=== PATIENT | male | born 1955 | race Caucasian/White ===

== ENCOUNTER → 2018-03-18 | Outpatient (CLI) | payer MEDICARE, OTHER ==
[~2018-03-18] MED LIST: ACE325 PO; ALE70 PO; ASPI-715 PO; ATR80PT PO; BAC10 PO; BACL-51 PO; CALC-547 PO; CALC-896 PO; CIP500 PO; CLO1 PO; CLO75 PO; DOC100 PO; FAMO20TA9 PO; LEVO250T37 PO; LOR5/325 PO; MAGN30TA5 PO; MELA5TAB PO; METO25TA93 PO; MULT1CAP41 PO; NEOPT TOP; PHENA200 PO; ROP1 PO; SAW450CA5 PO; TAM4 PO; [UNRECOGNIZED DRUG - CODE] TOP; [UNRECOGNIZED DRUG - OTHER]
--- NOTE | 2018-03-18 11:09 | RADIOLOGY IMAGING REPORT ---
FACILITY: [facility] PATIENT NAME: Eligio Menard : 1955 MR: [id number] V: [id number] EXAM DATE: ORDERING PHYSICIAN: PAOLA MORTON TECHNOLOGIST: Location: [facility] - [place], [place] Patient: Eligio Menard : 1955 Visit/Account:[id number] Date of Sevice: 03/18/2018 DEXA Scan CLINICAL INFORMATION: Osteoporosis. COMPARISON: March 15, 2016 LUMBAR SPINE: The bone mineral density (BMD) measured from L1-L4 correlates with a Z-score 0.2 and a T-score of -0 .6 which is normal as defined by the World Health Organization. Bone mineral density has decreased b y 1.5% compared to prior (change of 5% is considered significant). HIP: Bone mineral density (BMD) measured in the left total hip region correlates with a Z-score -0.1 and a T-score of -0.8 which is normal as defined by the World Health Organization. Hip bone mineral densi ty has decreased by 1.4% compared to prior (change of 5% is considered significant). Bone mineral density (BMD) measured in the left femoral Neck region measures 0.979 g/cm2. IMPRESSION: 1. Lumbar spine: Normal bone mineral density.. No significant change. 2. Left Total Hip: Normal bone mineral density. No significant change. 3. Left femoral Neck: Bone Mineral Density is 0.979 g/cm2 The next DEXA scan of this patient should include the following sites: L1-L4 and the left hip. FRAX? WHO Fracture Risk Assessment Tool link: <http://www.shef.ac.uk/FRAX/tool.jsp?locationValue=9> PLEASE NOTE: 1) The World Health Organization defines low BMD as follows: T-score Normal > -1 Osteopenia < -1 and > -2.5 Osteoporosis < -2.5 without fractures Established osteoporosis < -2.5 with fractures 2) In general, you may wish to consider: Diagnosis Treatment Follow-up DEXA Normal BMD Prevention 2-3 years Osteopenia Prevention/therapy 1-2 years Osteoporosis Therapy Yearly 3) Fracture risk estimated from the T-score is more accurate for vertebral fractures (often spontane ous) than for hip fractures. Report Dictated By: Jese Trejo MD at 03/18/2018 11:00 AM Report E-Signed By: Jese Trejo MD at 03/18/2018 11:03 AM WSN:[id number]
== END ==
LOC: RAD 00:43
PROVIDERS: ATTEND Nurse Practitioner Family
DX: M81.0 Age-related osteoporosis without current pathological fracture (principal); M81.8 Other osteoporosis without current pathological fracture
CPT/HCPCS: 77080

== ENCOUNTER → 2018-06-04 | Outpatient (CLI) | payer MEDICARE, OTHER ==
[~2018-06-04] MED LIST changes: +BUPR-124 PO; +METO50TA19 PO; +ROPI4TAB2 PO; +ROPI4TAB21 PO
--- NOTE | 2018-06-04 16:34 | RADIOLOGY IMAGING REPORT ---
FACILITY: [facility] [place] PATIENT NAME: Eligio Menard : 1955 MR: [id number] V: [id number] EXAM DATE: ORDERING PHYSICIAN: PAOLA MORTON TECHNOLOGIST: Location: [facility] [place] Patient: Eligio Menard : 1955 Visit/Account:[id number] Date of Sevice: 06/04/2018 CHEST PA AND LAT INDICATION: Cough x2 weeks COMPARISON: 03/04/2013 FINDINGS: Heart size within normal limits. There is no focal infiltrate or lobar consolidation. There is no pneumothorax or pleural effusion. The lungs are hyperexpanded and system with COPD IMPRESSION: 1. No acute cardiopulmonary process. Stable COPD Report Dictated By: Clarence Chatterjee at 06/04/2018 4:29 PM Report E-Signed By: Clarence Chatterjee at 06/04/2018 4:30 PM WSN:[id number]
== END ==
LOC: RAD 15:01
PROVIDERS: ATTEND Nurse Practitioner Family
DX: J20.9 Acute bronchitis, unspecified (principal)
CPT/HCPCS: 71046

== ENCOUNTER 2018-10-13 12:36 | Emergency (ER) | payer MEDICARE, OTHER ==
--- NOTE | 2018-10-13 12:58 | ER Report ---
History and Physical Time Seen By MD: 12:45 HPI/ROS CHIEF COMPLAINT: slurred speech, facial weakness HISTORY OF PRESENT ILLNESS: Pt has hx spinal cerebellar atrophy and blindness; per pt he has felt fatigued over past 2 d with increased activity; per he left for [place] on friday for appointment; when he returned home friday at 5pm, she noticed slurred speech. This am, she left the home at 1030; when she returned at 1215 she noticed facial droop on the left. She also states pt has had increase in his resting tremors over past 2 weeks. He has never had cva, is on asa 325 mg REVIEW OF SYSTEMS: Constitutional: No fever, no chills. Eyes: No discharge. ENT: No sore throat. Cardiovascular: No chest pain, no palpitations. Respiratory: No cough, no shortness of breath. Gastrointestinal: No abdominal pain, no vomiting. Genitourinary: no urinary symptoms Musculoskeletal: No back pain. Skin: No rashes. Neurological: No headache. Remainder of the 14 system rev: Yes Allergies: Coded Allergies: No Known Drug Allergies (Verified , 02/26/13) Home Meds Reported Medications Ropinirole Hcl (ROPINIROLE HCL) 4 Mg Tab.er.24h, 4 MG PO QDAY 06/03/18 Bupropion Hcl (BUPROPION XL) 150 Mg Tab.er.24h, 150 MG PO QDAY, #10 TAB 06/03/18 Metoprolol Succinate (METOPROLOL SUCCINATE) 50 Mg Tab.er.24h, 1 TAB PO QDAY, TAB 06/03/18 Baclofen (Lioresal) 20 Mg Tablet, 20 MG PO HS 03/04/13 Magnesium (Magnesium) 30 Mg Tablet, 30 MG PO DAILY, 0 Refills 07/17/10 Saw Forreston Fruit (Saw Forreston) 450 Mg Capsule, 450 MG PO DAILY, 0 Refills 07/17/10 Aspirin (Aspirin) 81 Mg Tablet.dr, 325 MG PO DAILY, 0 Refills 07/17/10 [Eye Support Suppl] No Conflict Check, 0 Refills 07/17/10 Multivitamins W-Minerals (Multivitamin) 1 Cap Capsule, 1 CAP PO DAILY, 0 Refills 07/17/10 Clonazepam (Klonopin) 1 Mg Tab, 1 MG PO QHS, 0 Refills 07/17/10 Reviewed Nurses Notes: Yes Old Medical Records Reviewed: Yes Hx Smoking: No Smoking Status: Never Smoker, Unknown if Ever Smoked Hx Substance Use Disorder: No Hx Alcohol Use: Yes (1 wine daily) Constitutional Vital Sign - Last 24 Hours 10/13/18 10/13/18 10/13/18 10/13/18 12:42 12:54 13:00 13:15 Temp 98.2 Pulse 74 80 79 Resp 16 18 9 B/P (MAP) 132/77 132/77 (95) 115/79 (91) 135/79 (97) Pulse Ox 96 96 96 O2 Delivery Room Air 10/13/18 10/13/18 10/13/18 10/13/18 13:30 13:45 14:00 14:15 Pulse 82 71 69 67 Resp 16 17 19 16 B/P (MAP) 130/89 (103) 121/77 (92) 117/72 (87) 116/74 (88) Pulse Ox 97 95 94 94 10/13/18 10/13/18 10/13/18 10/13/18 14:30 15:35 15:45 16:00 Pulse 70 66 77 Resp 14 9 18 B/P (MAP) 111/87 (95) 131/82 (98) 134/80 (98) 101/89 (93) Pulse Ox 95 96 93 Physical Exam General Appearance: The patient is alert, has no immediate need for airway protection and no signs of toxicity. Eyes: Pupils equal and round no pallor or injection. Pt does not have any sight at baseline ENT, Mouth: Mucous membranes are moist. Slurred, slowed speech Respiratory: There are no retractions, lungs are clear to auscultation. Cardiovascular: Regular rate and rhythm. Gastrointestinal: Abdomen is soft and non tender, no masses, bowel sounds normal. Neurological: CN ii-xii intact other than visual uriarte. 5/5 MS with tremors and hyperreflexia as is baseline. Nl sensation without extinction. Skin: Warm and dry, no rashes. Musculoskeletal: Neck is supple non tender. Extremities are nontender, nonswollen and have baseline ROM given pt's hyperspacticity DIFFERENTIAL DIAGNOSIS: After history and physical exam differential diagnosis was considered for stroke, infection, electrolyte, metabolic d/o. Medical Decision Making Data Points Result Diagram: 10/13/18 1240 10/13/18 1240 Laboratory Hematology Test 10/13/18 12:40 10/13/18 16:50 Red Blood Count 5.92 M/uL (4.00-5.60) Mean Corpuscular Volume 87.7 fL (80.0-96.0) Mean Corpuscular Hemoglobin 29.4 pg (26.0-33.0) Mean Corpuscular Hemoglobin Concent 33.5 g/dL (32.0-36.0) Red Cell Distribution Width 14.1 % (11.5-14.5) Mean Platelet Volume 7.8 fL (7.2-11.1) Neutrophils % (Manual) 75 % (39.4-72.5) Lymphocytes % (Manual) 7 % (17.6-49.6) Atypical Lymphocytes % 6 % Monocytes % (Manual) 6 % (4.1-12.4) Eosinophils % (Manual) 5 % (0.4-6.7) Basophils % (Manual) 1 % (0.3-1.4) Prothrombin Time 12.5 seconds (12.0-14.4) Prothromb Time International Ratio 0.93 Activated Partial Thromboplast Time 32 seconds (23-35) Sodium Level 141 mmol/L (137-145) Potassium Level 4.3 mmol/L (3.5-5.0) Chloride Level 102 mmol/L (98-107) Carbon Dioxide Level 30 mmol/L (22-30) Blood Urea Nitrogen 21 mg/dl (9-21) Creatinine 1.20 mg/dl (0.66-1.25) Glomerular Filtration Rate Calc > 60.0 Random Glucose 101 mg/dl (75-110) Calcium Level 9.5 mg/dl (8.4-10.2) Phosphorus Level 2.9 mg/dl (2.5-4.5) Magnesium Level 2.6 mg/dl (1.7-2.2) Total Bilirubin 0.6 mg/dl (0.2-1.3) Aspartate Amino Transf (AST/SGOT) 63 U/L (0-35) Alanine Aminotransferase (ALT/SGPT) 32 U/L (0-56) Alkaline Phosphatase 59 U/L (0-126) Total Creatine Kinase 103 U/L (55-170) Troponin I < 0.012 ng/ml Total Protein 7.3 g/dl (6.3-8.2) Albumin 4.1 g/dl (3.5-5.0) Urine Color Yellow Urine Clarity Cloudy Urine pH 8.0 pH (4.8-9.5) Urine Specific West 1.013 Urine Protein Negative mg/dL (NEGATIVE) Urine Glucose (UA) Negative mg/dL (NEGATIVE) Urine Ketones Negative mg/dL (NEGATIVE) Urine Blood Negative (NEGATIVE) Urine Nitrite Negative (NEGATIVE) Urine Bilirubin Negative (NEGATIVE) Urine Urobilinogen Negative mg/dL (0.2-1.9) Urine Leukocyte Esterase Negative (NEGATIVE) Urine RBC None /HPF (0-2/HPF) Urine WBC None /HPF (0-5/HPF) Urine Squamous Epithelial Cells None /LPF (NONE-FEW) Urine Bacteria Negative /HPF (NONE-FEW) Urine Mucus None /HPF (NONE-FEW) Chemistry Test 10/13/18 12:40 10/13/18 16:50 White Blood Count 6.6 k/uL (4.5-11.0) Red Blood Count 5.92 M/uL (4.00-5.60) Hemoglobin 17.4 g/dL (14.0-18.0) Hematocrit 51.9 % (42.0-52.0) Mean Corpuscular Volume 87.7 fL (80.0-96.0) Mean Corpuscular Hemoglobin 29.4 pg (26.0-33.0) Mean Corpuscular Hemoglobin Concent 33.5 g/dL (32.0-36.0) Red Cell Distribution Width 14.1 % (11.5-14.5) Platelet Count 309 K/uL (150-450) Mean Platelet Volume 7.8 fL (7.2-11.1) Neutrophils % (Manual) 75 % (39.4-72.5) Lymphocytes % (Manual) 7 % (17.6-49.6) Atypical Lymphocytes % 6 % Monocytes % (Manual) 6 % (4.1-12.4) Eosinophils % (Manual) 5 % (0.4-6.7) Basophils % (Manual) 1 % (0.3-1.4) Prothrombin Time 12.5 seconds (12.0-14.4) Prothromb Time International Ratio 0.93 Activated Partial Thromboplast Time 32 seconds (23-35) Glomerular Filtration Rate Calc > 60.0 Calcium Level 9.5 mg/dl (8.4-10.2) Phosphorus Level 2.9 mg/dl (2.5-4.5) Magnesium Level 2.6 mg/dl (1.7-2.2) Total Bilirubin 0.6 mg/dl (0.2-1.3) Aspartate Amino Transf (AST/SGOT) 63 U/L (0-35) Alanine Aminotransferase (ALT/SGPT) 32 U/L (0-56) Alkaline Phosphatase 59 U/L (0-126) Total Creatine Kinase 103 U/L (55-170) Troponin I < 0.012 ng/ml Total Protein 7.3 g/dl (6.3-8.2) Albumin 4.1 g/dl (3.5-5.0) Urine Color Yellow Urine Clarity Cloudy Urine pH 8.0 pH (4.8-9.5) Urine Specific West 1.013 Urine Protein Negative mg/dL (NEGATIVE) Urine Glucose (UA) Negative mg/dL (NEGATIVE) Urine Ketones Negative mg/dL (NEGATIVE) Urine Blood Negative (NEGATIVE) Urine Nitrite Negative (NEGATIVE) Urine Bilirubin Negative (NEGATIVE) Urine Urobilinogen Negative mg/dL (0.2-1.9) Urine Leukocyte Esterase Negative (NEGATIVE) Urine RBC None /HPF (0-2/HPF) Urine WBC None /HPF (0-5/HPF) Urine Squamous Epithelial Cells None /LPF (NONE-FEW) Urine Bacteria Negative /HPF (NONE-FEW) Urine Mucus None /HPF (NONE-FEW) Coagulation Test 10/13/18 12:40 Prothrombin Time 12.5 seconds Prothromb Time International Ratio 0.93 Activated Partial Thromboplast Time 32 seconds Urinalysis Test 10/13/18 16:50 Urine Color Yellow Urine Clarity Cloudy Urine pH 8.0 pH (4.8-9.5) Urine Specific West 1.013 Urine Protein Negative mg/dL (NEGATIVE) Urine Glucose (UA) Negative mg/dL (NEGATIVE) Urine Ketones Negative mg/dL (NEGATIVE) Urine Blood Negative (NEGATIVE) Urine Nitrite Negative (NEGATIVE) Urine Bilirubin Negative (NEGATIVE) Urine Urobilinogen Negative mg/dL (0.2-1.9) Urine Leukocyte Esterase Negative (NEGATIVE) Urine RBC None /HPF (0-2/HPF) Urine WBC None /HPF (0-5/HPF) Urine Squamous Epithelial Cells None /LPF (NONE-FEW) Urine Bacteria Negative /HPF (NONE-FEW) Urine Mucus None /HPF (NONE-FEW) EKG/Imaging EKG Interpretation 12 lead EKG: Rhythm: normal sinus rhythm [place]: left QRS: normal ST segments: artifact;flat t's avl; inerted t avr, q waves iii, avf. No STEMI [ ] Monitor Interpretation: Normal Sinus Rhythm ED Course/Re-evaluation ED Course Pt presents with symptoms concerning for subacute cva v exacerbation of underlying disease due to infection, electrolyte or other abnormality. In conj with telestroke, MRI ordered to r/o acute findings. MRI unremarkable. No sgs infection or electrolyte abnormality. After thorough ed evaluation and reassessment, no e/o emergent etiology of pt's symptoms. Throughout course, pt stated that he felt that he was run down and had been too active. This may be reasonable as he responds to iv hydration and feels near baseline at d/c. Ultimately, after discussion with pt he feels comfortable to d/c and f/u with pcm; understands SRPs. Decision to Disposition Date: Oct 13, 2018 Decision to Disposition Time: 17:10 Depart Departure Latest Vital Signs Vital Signs Date Time Temp Pulse Resp B/P (MAP) Pulse Ox O2 Delivery O2 Flow Rate FiO2 10/13/18 16:00 77 18 101/89 (93) 93 10/13/18 12:42 98.2 Room Air Impression: Primary Impression: Slurred speech Additional Impression: Fatigue Condition: Improved Disposition: HOME OR SELF-CARE Referrals: PAOLA MORTON (PCP) 2 Days Patient Instructions: Fatigue (ED) Additional Instructions: As we discussed, please return for worsening symptoms or any concerns. Follow up for re-evaluation this week with primary doctor. Problem Qualifiers Additional Impression: Fatigue Fatigue type: unspecified Qualified Codes: R53.83 - Other fatigue CHAYO ROBERT MD Oct 13, 2018 12:58
[2018-10-13 12:59] LABS: PLATELET COUNT, AUTOMATED 309 K/uL (150-450)
--- NOTE | 2018-10-13 13:11 | EKG ---
FACILITY: [facility] PATIENT NAME: MORE ESCOBAR : [id number] MR: [id number] V: [id number] EXAM DATE: ORDERING PHYSICIAN: CHAYO ROBERT TECHNOLOGIST: XAVIER Test Reason : ALTERED MENTAL STAT. Blood Pressure : / mmHG Vent. Rate : 075 BPM Atrial Rate : 075 BPM P-R Int : 144 ms QRS Dur : 086 ms QT Int : 390 ms P-R-T Axes : 076 -86 057 degrees QTc Int : 435 ms Normal sinus rhythm Left axis deviation Nonspecific T wave abnormality R wave progression consistent with old ant/sep [place] vs lead placement When compared with ECG of 04-MAR-2013 13:56, Relatively unchanged but difficult to compare secondary to baseline artifact in the prior ECG Confirmed by EARL MAY ([id number]) on 10/13/2018 6:08:16 PM Referred By: JAKOB Confirmed By:EARL MAY
[2018-10-13 13:12] LABS: INR 0.93
--- NOTE | 2018-10-13 13:16 | RADIOLOGY IMAGING REPORT ---
FACILITY: [facility] [place] PATIENT NAME: Eligio Menard : 1955 MR: [id number] V: [id number] EXAM DATE: ORDERING PHYSICIAN: CHAYO ROBERT TECHNOLOGIST: Location: [facility] Patient: Eligio Menard : 1955 Visit/Account:[id number] Date of Sevice: 10/13/[address] without contrast: HISTORY: Possible stroke facial drooping COMPARISON: None. FINDINGS: 3 mm thick axial images were obtained through the head without contrast. Sagittal and coron al reformations were generated and used in interpretation of the study. Data Entry Representative images are arc hived to PACS. One of the following dose optimization techniques was utilized in the performance of this exam: Autom ated exposure control; adjustment of the mA and/or kV according to the patient's size; or use of an i terative reconstruction technique. Specific details can be referenced in the facility's radiology C T exam operational policy. There is mild diffuse atrophy. Ventricles, cisterns and sulci are symmetric. There is no midline shif t. There are no extra-axial fluid collections. No intracranial hemorrhage. No evidence of mass or mas s effect. Lozano-white differentiation is well-maintained. There is no evidence of an acute infarct. No acute osseous abnormality noted. Sinuses are clear. IMPRESSION: 1. No acute intracranial abnormality. There is no intracranial hemorrhage and no CT findings to sugge st an acute infarct. 2. Results of the study were called to the referring clinician/clinicians mechanical service representative by the radio logy [facility] at my request, 1310 hours, 10/13/2018. Report Dictated By: Keely Whitley MD at 10/13/2018 1:04 PM Report E-Signed By: Keely Whitley MD at 10/13/2018 1:12 PM WSN:[id number]
--- NOTE | 2018-10-13 13:21 | RADIOLOGY IMAGING REPORT ---
FACILITY: [facility] [place] PATIENT NAME: Eligio Menard : 1955 MR: [id number] V: [id number] EXAM DATE: ORDERING PHYSICIAN: CHAYO ROBERT TECHNOLOGIST: Location: Patient: Eligio Menard : 1955 Visit/Account:[id number] Date of Sevice: 10/13/2018 Exam type: CHEST SINGLE AP History: Altered mental status Comparison: June 04, 2018. Findings: Again noted is hyperexpansion of the lung uriarte. There is no evidence of focal infiltrates, pleural effusions or pulmonary edema. Cardiac silhouette is normal in size IMPRESSION: 1. Mild hyperexpansion lung uriarte although no evidence of acute appearing consolidation Report Dictated By: Shelby Deshpande MD at 10/13/2018 1:16 PM Report E-Signed By: Shelby Deshpande MD at 10/13/2018 1:17 PM WSN:[email or web address]
--- NOTE | 2018-10-13 16:08 | RADIOLOGY IMAGING REPORT ---
FACILITY: [facility] PATIENT NAME: Eligio Menard : 1955 MR: [id number] V: [id number] EXAM DATE: ORDERING PHYSICIAN: CHAYO ROBERT TECHNOLOGIST: [place] [facility] [place] Patient: Eligio Menard : 1955 Visit/Account:[id number] Date of Sevice: 10/13/2018 EXAMINATION: MR brain without IV contrast HISTORY: History of cerebellar atrophy. New slurred speech and droop. COMPARISON: CT head without contrast 10/13/2018 TECHNIQUE: Multi-planar, multi-sequence brain MRI was performed without IV contrast administration. FINDINGS: Brain volume: There is mild supratentorial parenchymal volume loss, with moderate cerebellar atrophy . Sagittal midline structures: Normal. Ventricles: Symmetric and normal in caliber for the degree of overlying cortical volume loss. Acute ischemic changes: No abnormal focus of restricted diffusion to indicate acute ischemia. Hemorrhage: None. Masses / edema: None. Lozano-white: Negative. White matter lesions: There are a few punctate foci of increased T2/FLAIR signal in the white matter bilaterally, nonspecific but compatible with chronic small vessel ischemic change. Vessels: Normal. Extra-axial: None. Calvarium / scalp: Negative. Skull base: Negative. Visualized sinuses / orbits: Negative. Visualized upper neck: Negative. IMPRESSION: 1. No evidence of acute infarct or other acute intracranial pathology. 2. Moderate cerebellar atrophy, with mild supratentorial parenchymal volume loss. Mild white matter c hanges are nonspecific but may be compatible with chronic small vessel ischemic change. Report Dictated By: Asif Melara MD at 10/13/2018 3:58 PM Report E-Signed By: Asif Melara MD at 10/13/2018 4:04 PM WSN:[id number]
--- NOTE | 2018-10-13 16:15 | RADIOLOGY IMAGING REPORT ---
FACILITY: [facility] [place] PATIENT NAME: Eligio Menard : 1955 MR: [id number] V: [id number] EXAM DATE: ORDERING PHYSICIAN: CHAYO ROBERT TECHNOLOGIST: Location: [facility] - [place] Patient: Eligio Menard : 1955 Visit/Account:[id number] Date of Sevice: 10/13/2018 EXAMINATION: MRA of the [place] HISTORY: History of cerebellar atrophy. New slurred speech and droop. COMPARISON: None. TECHNIQUE: 0D-vraj-yh-flight angiography was performed in the axial plane on the [place] without IV shannan olinium. The exam was tailored for assessment of the [place] only. Only limited sequences were obtai reese of the rest of the brain. FINDINGS: Petrous carotids: Negative. Carotid siphons / bifurcations: Negative. Anterior / Posterior communicating arteries: Negative. Anterior cerebral arteries: Negative. Middle cerebral arteries: Negative. Intra-cranial vertebral arteries: Negative. Basilar artery: Negative. PICA / AICA / SCA / PIE MAKER MACHINE: Negative. Non-angiographic Findings: None significant. IMPRESSION: Normal MRA of the [place] without evidence of intracranial aneurysm. Report Dictated By: Asif Melara MD at 10/13/2018 4:04 PM Report E-Signed By: Asif Melara MD at 10/13/2018 4:10 PM WSN:[id number]
[2018-10-13] MEDS ORDERED: NS(*) 0.9% 1000 ML BAG 1,000 ML IV ONE (16:50)
[2018-10-13 18:15] VITALS: BP 144/94
== END 2018-10-13 18:21 | disposition home or self-care (01) ==
LOC: ER 12:58
DX: R47.81 Slurred speech (principal); R53.83 Other fatigue
CPT/HCPCS: 70450; 70544; 70551; 71045; 81001; 82550; 83735; 84100; 84484; 85007; 85027; 85610; 85730; 93005; 96360; 99285; J7030; 82040; 82247; 82310; 82374; 82435; 82565; 82947; 84075; 84132; 84155; 84295; 84450; 84460; 84520

== ENCOUNTER 2018-12-02 11:38 | Emergency (ER) | payer MEDICARE, OTHER ==
--- NOTE | 2018-12-02 11:48 | ER Report ---
History and Physical Time Seen By MD: 11:47 HPI/ROS CHIEF COMPLAINT: Hematuria HISTORY OF PRESENT ILLNESS: 62-year-old male patient presents to emergency room with complaint of hematuria. Patient states that he has spinal cerebral atrophy which has affected his sight. He states that he had gotten up to go the bathroom. He states that he was unable to visualize the tendon itself, however he was told that he did have blood in his urine. Patient states that he does not have any pain, burning, urgency or frequency with urination. Patient states that he has no flank pain, pelvic pain, abdominal pain. He denies having any nausea, vomiting or diarrhea. Patient states that he did contact his primary care provid er and was told to come into the emergency room case wanted to evaluate for a possible kidney stone. REVIEW OF SYSTEMS: Respiratory: No cough, no dyspnea. Cardiovascular: No chest pain, no palpitations. Gastrointestinal: No vomiting, no abdominal pain. Musculoskeletal: No back pain. Allergies: Coded Allergies: No Known Drug Allergies (Verified , 12/02/18) Home Meds Active Scripts Sulfamethoxazole/Trimet 800-160 Mg Tab (BACTRIM DS TABLET) 1 Each Tablet, 1 TAB PO Q12H, #14 TAB Prov:CHAD TAVERAS [place] 12/02/18 Reported Medications [Cardio Plus] No Conflict Check, 6 TAB DAILY 12/02/18 [Arginex] No Conflict Check, 3 TAB 12/02/18 Alpha Lipoic Acid (ALPHA LIPOIC ACID) 200 Mg Capsule, 200 MG PO DAILY, CAPSULE 12/02/18 [L-Thianine] No Conflict Check, 100 MG 12/02/18 Ubiquinol (UBIQUINOL) 100 Mg Capsule, 300 MG PO BID, CAPSULE 12/02/18 [Cellorgane] No Conflict Check, 1 12/02/18 Cider Vinegar (APPLE CIDER VINEGAR) 600 Mg Capsule, 1800 MG PO TID, CAPSULE 12/02/18 [Magnesium Chew] No Conflict Check, 350 MG PO 12/02/18 Ropinirole Hcl (ROPINIROLE HCL) 4 Mg Tab.er.24h, 4 MG PO QDAY 06/03/18 Bupropion Hcl (BUPROPION XL) 150 Mg Tab.er.24h, 150 MG PO QDAY, #10 TAB 06/03/18 Metoprolol Succinate (METOPROLOL SUCCINATE) 50 Mg Tab.er.24h, 1 TAB PO QDAY, TAB 06/03/18 Baclofen (Lioresal) 20 Mg Tablet, 20 MG PO HS 03/04/13 Saw [place] Fruit (Saw [place]) 450 Mg Capsule, 450 MG PO DAILY, 0 Refills 07/17/10 Aspirin (Aspirin) 81 Mg Tablet.dr, 325 MG PO DAILY, 0 Refills 07/17/10 [Eye Support Suppl] No Conflict Check, 0 Refills 07/17/10 Multivitamins W-Minerals (Multivitamin) 1 Cap Capsule, 1 CAP PO DAILY, 0 Refills 07/17/10 Clonazepam (Klonopin) 1 Mg Tab, 1 MG PO QHS, 0 Refills 07/17/10 Discontinued Reported Medications Magnesium (Magnesium) 30 Mg Tablet, 30 MG PO DAILY, 0 Refills 07/17/10 Past Medical/Surgical History Patient has a past medical history with spinal cerebral atrophy, CAD, angina, hypertension, hyperlipidemia, sleep apnea, pneumonia, difficulty urinating, enlarged prostate, alcohol use, depression. Patient has surgical history of eye surgery, tonsillectomy, TURP, vasectomy, colonoscopy, coronary stent placement. Patient has a family medical history of cancer, psychiatric problems. Reviewed Nurses Notes: Yes Hx Smoking: No Smoking Status: Never Smoker, Unknown if Ever Smoked Hx Substance Use Disorder: No Hx Alcohol Use: Yes (1 wine daily) Constitutional Vital Sign - Last 24 Hours 12/02/18 12/02/18 12/02/18 12/02/18 11:38 11:45 11:51 12:00 Temp 97.6 Pulse ??? 78 Resp 16 B/P (MAP) 132/86 132/86 (101) 117/67 (84) Pulse Ox 94 O2 Delivery Room Air 12/02/18 12/02/18 12/02/18 12:08 12:30 12:38 Pulse 77 68 B/P (MAP) 130/76 (94) Pulse Ox 93 92 Physical Exam General Appearance: The patient is alert, has no immediate need for airway protection and no current signs of toxicity. Respiratory: Chest is non tender, lungs are clear to auscultation. Cardiac: regular rate and rhythm Gastrointestinal: Abdomen is soft and non tender, no masses, bowel sounds normal. : Patient does have a distended bladder. Musculoskeletal: Neck: Neck is supple and non tender. Extremities have full range of motion and are non tender. Skin: No rashes or lesions. DIFFERENTIAL DIAGNOSIS: After history and physical exam differential diagnosis was considered for kidney stone, urinary tract infection, prostatitis, urethritis. Medical Decision Making Data Points Laboratory Hematology Test 12/02/18 12:32 Urine Color Yellow Urine Clarity Slightly-cloudy Urine pH 7.0 pH (4.8-9.5) Urine Specific [place] 1.013 Urine Protein Negative mg/dL (NEGATIVE) Urine Glucose (UA) Negative mg/dL (NEGATIVE) Urine Ketones Negative mg/dL (NEGATIVE) Urine Blood Moderate (NEGATIVE) Urine Nitrite Positive (NEGATIVE) Urine Bilirubin Negative (NEGATIVE) Urine Urobilinogen Negative mg/dL (0.2-1.9) Urine Leukocyte Esterase Moderate (NEGATIVE) Urine RBC 45 /HPF (0-2/HPF) Urine WBC 22 /HPF (0-5/HPF) Urine Squamous Epithelial Cells None /LPF (</=FEW) Urine Amorphous Crystals Few /HPF Urine Bacteria Negative /HPF (NONE-FEW) Urine Mucus None /HPF (NONE-FEW) Chemistry Test 12/02/18 12:32 Urine Color Yellow Urine Clarity Slightly-cloudy Urine pH 7.0 pH (4.8-9.5) Urine Specific [place] 1.013 Urine Protein Negative mg/dL (NEGATIVE) Urine Glucose (UA) Negative mg/dL (NEGATIVE) Urine Ketones Negative mg/dL (NEGATIVE) Urine Blood Moderate (NEGATIVE) Urine Nitrite Positive (NEGATIVE) Urine Bilirubin Negative (NEGATIVE) Urine Urobilinogen Negative mg/dL (0.2-1.9) Urine Leukocyte Esterase Moderate (NEGATIVE) Urine RBC 45 /HPF (0-2/HPF) Urine WBC 22 /HPF (0-5/HPF) Urine Squamous Epithelial Cells None /LPF (</=FEW) Urine Amorphous Crystals Few /HPF Urine Bacteria Negative /HPF (NONE-FEW) Urine Mucus None /HPF (NONE-FEW) Urinalysis Test 12/02/18 12:32 Urine Color Yellow Urine Clarity Slightly-cloudy Urine pH 7.0 pH (4.8-9.5) Urine Specific [place] 1.013 Urine Protein Negative mg/dL (NEGATIVE) Urine Glucose (UA) Negative mg/dL (NEGATIVE) Urine Ketones Negative mg/dL (NEGATIVE) Urine Blood Moderate (NEGATIVE) Urine Nitrite Positive (NEGATIVE) Urine Bilirubin Negative (NEGATIVE) Urine Urobilinogen Negative mg/dL (0.2-1.9) Urine Leukocyte Esterase Moderate (NEGATIVE) Urine RBC 45 /HPF (0-2/HPF) Urine WBC 22 /HPF (0-5/HPF) Urine Squamous Epithelial Cells None /LPF (</=FEW) Urine Amorphous Crystals Few /HPF Urine Bacteria Negative /HPF (NONE-FEW) Urine Mucus None /HPF (NONE-FEW) ED Course/Re-evaluation ED Course Patient was admitted to exam room, history and physical were obtained. Differential diagnoses were considered. On examination lungs are clear, heart is regular, abdomen soft nontender. Patient had no CVA tenderness. Urinalysis was obtained which was positive for blood, leukocyte esterase and nitrites. Patient had 22 white blood cells and 45 red blood cells per high-power field. I believe that the underlying cause of his hematuria is a urinary tract infection. We will go ahead and start him on Bactrim DS, one tab by mouth twice a day and culture the urine. We will contact him if we need to change antibiotics. I discussed this with the patient and his and they verbalized understanding and agreement with plan. Decision to Disposition Date: Dec 02, 2018 Decision to Disposition Time: 12:55 Depart Departure Latest Vital Signs Vital Signs Date Time Temp Pulse Resp B/P (MAP) Pulse Ox O2 Delivery O2 Flow Rate FiO2 12/02/18 12:38 68 92 12/02/18 12:30 130/76 (94) 12/02/18 11:45 97.6 16 Room Air Impression: Primary Impression: Urinary tract infection Condition: Improved Disposition: HOME OR SELF-CARE Referrals: PAOLA MORTON (PCP) New Scripts Sulfamethoxazole/Trimet 800-160 Mg Tab (BACTRIM DS TABLET) 1 Each Tablet 1 TAB PO Q12H, #14 TAB Prov: CHAD TAVERAS 12/02/18 Patient Instructions: Urinary Tract Infection in Men (ED) Additional Instructions: Increase fluid intake. Get plenty of rest. Follow up with your primary care provider in the next week. Return to the ER if condition worsens. Continue with normal medications. Problem Qualifiers Primary Impression: Urinary tract infection Urinary tract infection type: acute cystitis Hematuria presence: with hematuria Qualified Codes: N30.01 - Acute cystitis with hematuria CHAD TAVERAS Dec 02, 2018 11:47
[2018-12-02] MEDS ORDERED: CARDIO PLUS (12:28)
[2018-12-02] MEDS ORDERED: [UNRECOGNIZED DRUG - OTHER] (12:28)
[2018-12-02] MEDS ORDERED: [UNRECOGNIZED DRUG - CODE] PO (12:28)
[2018-12-02] MEDS ORDERED: [UNRECOGNIZED DRUG - OTHER] (12:28)
[2018-12-02] MEDS ORDERED: MAGNESIUM PO (12:28)
[2018-12-02] MEDS ORDERED: ALPH200C2 PO (12:28)
[2018-12-02] MEDS ORDERED: UBIQ100C3 PO (12:28)
[2018-12-02] MEDS ORDERED: ARGINEX (12:28)
[2018-12-02 12:30] VITALS: BP 130/76
[2018-12-02] MEDS ORDERED: SULF-198 PO (12:54)
== END 2018-12-02 13:10 | disposition home or self-care (01) ==
LOC: ER 11:56
DX: N30.01 Acute cystitis with hematuria (principal)
CPT/HCPCS: 81001; 87077; 87088; 87186; 99282

== ENCOUNTER 2018-12-29 18:36 | Observation (INO) | payer MEDICARE, OTHER ==
[~2018-12-29] VITALS: Ht 195.6 cm; Wt 70.3 kg
[~2018-12-29 18:36] MED LIST changes: +ALPH200C2 PO; +ARGINEX; +CARDIO PLUS; +MAGNESIUM PO; +SULF-198 PO; +UBIQ100C3 PO; +[UNRECOGNIZED DRUG - CODE] PO; +[UNRECOGNIZED DRUG - OTHER]; +[UNRECOGNIZED DRUG - OTHER]
--- NOTE | 2018-12-29 19:03 | ER Report ---
History and Physical Time Seen By MD: 19:03 Hx. of Stated Complaint: Pt. has rare neurological disorder, wheelchair bound at baseline. Per , pt. is not functioning at baseline. Bilateral leg pain, which is not normal for him. No fevers. HPI/ROS CHIEF COMPLAINT: confusion HISTORY OF PRESENT ILLNESS: This is a 63 year old male. He has had slowly worsening confusion since last night. 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 He can transfer to bathroom at home, but cannot walk. He is generally very sharp mentally. Starting last night, his noted some confusion, which has worsened throughout today to where it is very severe. His speech is slower, and he has been oriented to self only. She noted that his leg restlessness was severe since last night as well. They did take an extra 1/2 tablet of clonazepam at their provider's instruction to see if this would help. He takes Ropinerole as well, no extra doses of this. He takes Baclofen as well, no extra doses of this. He uses some marijuanna vaping occasionally as well, but this is not new and has never caused an effect on his mentation. He has had problems with urinary tract infections in the past, the last was last month treated with Trimethoprim/Sulfamethoxazole. He denies runny nose, sore throat or cough. No trouble breathing. No aspiration. No falls or injuries. Denies pain anywhere. Normal elimination the last two days. No abdominal pain. No pain in the extremities. No chest pain. Allergies: Coded Allergies: No Known Drug Allergies (Verified , 12/29/18) Home Meds Reported Medications [Cardio Plus] No Conflict Check, 6 TAB DAILY 12/02/18 [Arginex] No Conflict Check, 3 TAB 12/02/18 Alpha Lipoic Acid (ALPHA LIPOIC ACID) 200 Mg Capsule, 200 MG PO DAILY, CAPSULE 12/02/18 [L-Thianine] No Conflict Check, 100 MG 12/02/18 Ubiquinol (UBIQUINOL) 100 Mg Capsule, 300 MG PO BID, CAPSULE 12/02/18 [Cellorgane] No Conflict Check, 1 12/02/18 Cider Vinegar (APPLE CIDER VINEGAR) 600 Mg Capsule, 1800 MG PO TID, CAPSULE 12/02/18 [Magnesium Chew] No Conflict Check, 350 MG PO 12/02/18 Ropinirole Hcl (ROPINIROLE HCL) 4 Mg Tab.er.24h, 4 MG PO QDAY 06/03/18 Bupropion Hcl (BUPROPION XL) 150 Mg Tab.er.24h, 150 MG PO QDAY, #10 TAB 06/03/18 Metoprolol Succinate (METOPROLOL SUCCINATE) 50 Mg Tab.er.24h, 1 TAB PO QDAY, TAB 06/03/18 Baclofen (Lioresal) 20 Mg Tablet, 20 MG PO HS 03/04/13 Saw [place] Fruit (Saw [place]) 450 Mg Capsule, 450 MG PO DAILY, 0 Refills 07/17/10 Aspirin (Aspirin) 81 Mg Tablet.dr, 325 MG PO DAILY, 0 Refills 07/17/10 [Eye Support Suppl] No Conflict Check, 0 Refills 07/17/10 Multivitamins W-Minerals (Multivitamin) 1 Cap Capsule, 1 CAP PO DAILY, 0 Refills 07/17/10 Clonazepam (Klonopin) 1 Mg Tab, 1 MG PO QHS, 0 Refills 07/17/10 Discontinued Scripts Sulfamethoxazole/Trimet 800-160 Mg Tab (BACTRIM DS TABLET) 1 Each Tablet, 1 TAB PO Q12H, #14 TAB Prov:CHAD TAVERAS 12/02/18 Reviewed Nurses Notes: Yes Hx Smoking: No Smoking Status: Never Smoker, Unknown if Ever Smoked Hx Substance Use Disorder: No Hx Alcohol Use: Yes (1 wine daily) Constitutional Vital Sign - Last 24 Hours 12/29/18 12/29/18 12/29/18 12/29/18 18:48 19:00 19:06 19:11 Pulse 62 63 Resp 25 22 B/P (MAP) 131/81 (98) 118/83 (95) Pulse Ox 89 93 12/29/18 12/29/18 12/29/18 12/29/18 19:30 20:00 20:11 20:16 Pulse 62 63 Resp 40 12 B/P (MAP) 132/79 (96) 125/88 (100) Pulse Ox 93 91 12/29/18 12/29/18 12/29/18 12/29/18 20:30 20:46 21:00 21:16 Pulse 62 62 Resp 20 28 B/P (MAP) 128/84 (99) 130/80 (97) Pulse Ox 92 92 12/29/18 12/29/18 12/29/18 21:30 21:46 22:00 Pulse 61 61 Resp 15 16 B/P (MAP) 132/96 (108) 135/96 (109) Pulse Ox 94 90 Physical Exam General Appearance: The patient is alert and responds to questions, somewhat slow to respond. No acute distress. He says he feels fine. Eyes: Pupils are equal, round. Minimally reactive to light. No pallor, injection or icterus. Patient cannot open his eyes on his own. ENT: Mucous membranes are moist. Normal oral mucosa. Posterior oropharynx is normal. Normal tympanic membranes and canals. Neck: Supple and non tender. No lymphadenopathy. Respiratory: Lungs are clear to auscultation. There are no retractions or accessory muscle use. Cardiovascular: Regular rate and rhythm. No murmurs, gallops or rubs. Normal capillary refill. No edema. Gastrointestinal: Abdomen is soft and non tender. Nondistended. Normal active bowel sounds. No costovertebral angle tenderness with percussion. Neurological: Alert and oriented to self only, not oriented to place, date, or president. General weakness and coordination problems chronically, says these are worse. Skin: Warm and dry. No rashes. Musculoskeletal: Extremities are nontender. No tenderness in palpation of the cervical, thoracic and lumbar spine. DIFFERENTIAL DIAGNOSIS: After history and physical exam, differential diagnosis was considered for altered mental status including but not limited to hypoglycemia, infectious process, electrolyte abnormality, head injury and medic ation causes. Medical Decision Making Data Points Result Diagram: 12/29/18190812/29/181908 Laboratory Hematology Test 12/29/18 19:09 12/29/18 20:18 Red Blood Count 5.14 M/uL (4.00-5.60) Mean Corpuscular Volume 89.3 fL (80.0-96.0) Mean Corpuscular Hemoglobin 29.8 pg (26.0-33.0) Mean Corpuscular Hemoglobin Concent 33.4 g/dL (32.0-36.0) Red Cell Distribution Width 15.8 % (11.5-14.5) Mean Platelet Volume 8.3 fL (7.2-11.1) Neutrophils (%) (Auto) 61.6 % (39.4-72.5) Lymphocytes (%) (Auto) 21.3 % (17.6-49.6) Monocytes (%) (Auto) 9.0 % (4.1-12.4) Eosinophils (%) (Auto) 7.0 % (0.4-6.7) Basophils (%) (Auto) 1.1 % (0.3-1.4) Nucleated RBC Relative Count (auto) 0.0 /100WBC Neutrophils # (Auto) 2.9 K/uL (2.0-7.4) Lymphocytes # (Auto) 1.0 K/uL (1.3-3.6) Monocytes # (Auto) 0.4 K/uL (0.3-1.0) Eosinophils # (Auto) 0.3 K/uL (0.0-0.5) Basophils # (Auto) 0.1 K/uL (0.0-0.1) Nucleated RBC Absolute Count (auto) 0.00 K/uL Sodium Level 144 mmol/L (137-145) Potassium Level 3.9 mmol/L (3.5-5.0) Chloride Level 114 mmol/L (98-107) Carbon Dioxide Level 28 mmol/L (22-30) Blood Urea Nitrogen 26 mg/dl (9-21) Creatinine 1.50 mg/dl (0.66-1.25) Glomerular Filtration Rate Calc 47.1 Random Glucose 131 mg/dl (75-110) Calcium Level 9.8 mg/dl (8.4-10.2) Magnesium Level 2.5 mg/dl (1.7-2.2) Total Bilirubin 0.2 mg/dl (0.2-1.3) Aspartate Amino Transf (AST/SGOT) 82 U/L (0-35) Alanine Aminotransferase (ALT/SGPT) 58 U/L (0-56) Alkaline Phosphatase 61 U/L (0-126) Total Protein 6.7 g/dl (6.3-8.2) Albumin 3.8 g/dl (3.5-5.0) Urine Color Yellow Urine Clarity Slightly-cloudy Urine pH 7.0 pH (4.8-9.5) Urine Specific [place] 1.013 Urine Protein Negative mg/dL (NEGATIVE) Urine Glucose (UA) Negative mg/dL (NEGATIVE) Urine Ketones Negative mg/dL (NEGATIVE) Urine Blood Negative (NEGATIVE) Urine Nitrite Negative (NEGATIVE) Urine Bilirubin Negative (NEGATIVE) Urine Urobilinogen Negative mg/dL (0.2-1.9) Urine Leukocyte Esterase Negative (NEGATIVE) Urine RBC None /HPF (0-2/HPF) Urine WBC <1 /HPF (0-5/HPF) Urine Squamous Epithelial Cells None /LPF (NONE-FEW) Urine Amorphous Crystals Few /HPF Urine Bacteria Negative /HPF (NONE-FEW) Urine Mucus None /HPF (NONE-FEW) Urine Opiates Screen Negative Urine Barbiturates Screen Negative Ur Tricyclic Antidepressants Screen Negative Urine Phencyclidine Screen Negative Urine Amphetamines Screen Negative Urine Benzodiazepines Screen Negative Urine Cocaine Screen Negative Urine Cannabinoids Screen Positive Chemistry Test 12/29/18 19:09 12/29/18 20:18 White Blood Count 4.7 k/uL (4.5-11.0) Red Blood Count 5.14 M/uL (4.00-5.60) Hemoglobin 15.3 g/dL (14.0-18.0) Hematocrit 45.9 % (42.0-52.0) Mean Corpuscular Volume 89.3 fL (80.0-96.0) Mean Corpuscular Hemoglobin 29.8 pg (26.0-33.0) Mean Corpuscular Hemoglobin Concent 33.4 g/dL (32.0-36.0) Red Cell Distribution Width 15.8 % (11.5-14.5) Platelet Count 214 K/uL (150-450) Mean Platelet Volume 8.3 fL (7.2-11.1) Neutrophils (%) (Auto) 61.6 % (39.4-72.5) Lymphocytes (%) (Auto) 21.3 % (17.6-49.6) Monocytes (%) (Auto) 9.0 % (4.1-12.4) Eosinophils (%) (Auto) 7.0 % (0.4-6.7) Basophils (%) (Auto) 1.1 % (0.3-1.4) Nucleated RBC Relative Count (auto) 0.0 /100WBC Neutrophils # (Auto) 2.9 K/uL (2.0-7.4) Lymphocytes # (Auto) 1.0 K/uL (1.3-3.6) Monocytes # (Auto) 0.4 K/uL (0.3-1.0) Eosinophils # (Auto) 0.3 K/uL (0.0-0.5) Basophils # (Auto) 0.1 K/uL (0.0-0.1) Nucleated RBC Absolute Count (auto) 0.00 K/uL Glomerular Filtration Rate Calc 47.1 Calcium Level 9.8 mg/dl (8.4-10.2) Magnesium Level 2.5 mg/dl (1.7-2.2) Total Bilirubin 0.2 mg/dl (0.2-1.3) Aspartate Amino Transf (AST/SGOT) 82 U/L (0-35) Alanine Aminotransferase (ALT/SGPT) 58 U/L (0-56) Alkaline Phosphatase 61 U/L (0-126) Total Protein 6.7 g/dl (6.3-8.2) Albumin 3.8 g/dl (3.5-5.0) Urine Color Yellow Urine Clarity Slightly-cloudy Urine pH 7.0 pH (4.8-9.5) Urine Specific [place] 1.013 Urine Protein Negative mg/dL (NEGATIVE) Urine Glucose (UA) Negative mg/dL (NEGATIVE) Urine Ketones Negative mg/dL (NEGATIVE) Urine Blood Negative (NEGATIVE) Urine Nitrite Negative (NEGATIVE) Urine Bilirubin Negative (NEGATIVE) Urine Urobilinogen Negative mg/dL (0.2-1.9) Urine Leukocyte Esterase Negative (NEGATIVE) Urine RBC None /HPF (0-2/HPF) Urine WBC <1 /HPF (0-5/HPF) Urine Squamous Epithelial Cells None /LPF (NONE-FEW) Urine Amorphous Crystals Few /HPF Urine Bacteria Negative /HPF (NONE-FEW) Urine Mucus None /HPF (NONE-FEW) Urine Opiates Screen Negative Urine Barbiturates Screen Negative Ur Tricyclic Antidepressants Screen Negative Urine Phencyclidine Screen Negative Urine Amphetamines Screen Negative Urine Benzodiazepines Screen Negative Urine Cocaine Screen Negative Urine Cannabinoids Screen Positive Toxicology Test 12/29/18 20:18 Urine Opiates Screen Negative Urine Barbiturates Screen Negative Ur Tricyclic Antidepressants Screen Negative Urine Phencyclidine Screen Negative Urine Amphetamines Screen Negative Urine Benzodiazepines Screen Negative Urine Cocaine Screen Negative Urine Cannabinoids Screen Positive Urinalysis Test 12/29/18 20:18 Urine Color Yellow Urine Clarity Slightly-cloudy Urine pH 7.0 pH (4.8-9.5) Urine Specific [place] 1.013 Urine Protein Negative mg/dL (NEGATIVE) Urine Glucose (UA) Negative mg/dL (NEGATIVE) Urine Ketones Negative mg/dL (NEGATIVE) Urine Blood Negative (NEGATIVE) Urine Nitrite Negative (NEGATIVE) Urine Bilirubin Negative (NEGATIVE) Urine Urobilinogen Negative mg/dL (0.2-1.9) Urine Leukocyte Esterase Negative (NEGATIVE) Urine RBC None /HPF (0-2/HPF) Urine WBC <1 /HPF (0-5/HPF) Urine Squamous Epithelial Cells None /LPF (NONE-FEW) Urine Amorphous Crystals Few /HPF Urine Bacteria Negative /HPF (NONE-FEW) Urine Mucus None /HPF (NONE-FEW) EKG/Imaging Imaging CT Head without contrast Indication: Altered level of consciousness. Comparison: 10/13/2018. Technique: Axial CT images were obtained through the brain from the skull base to the vertex without administration of IV contrast. Reformatted coronal and sagittal images were also obtained. One of the following dose optimization techniques was utilized in the performance of this exam: automated exposure control; adjustment of the mA and/or kV according to the patient's size; or use of an iterative reconstruction technique. Specific details can be referenced in the facility's radiology CT exam operational policy. Findings: No evidence of mass, mass effect, or midline shift. No acute intracranial hemorrhage or acute territorial infarction. No extra-axial fluid collection or hydrocephalus. Cerebral and cerebellar atrophy is again present. Mild periventricular white matter ischemic changes consistent small vessel disease. Lozano/white matter differentiation appears normal. Bony structures show no fractures or lesions. Sinuses and mastoids visualized are clear. The visualized paranasal sinuses and mastoid air cells are clear. IMPRESSION: 1. No acute intracranial abnormality. Report Dictated By: Matt Kim at 12/29/2018 8:07 PM CHEST SINGLE AP Indication: Altered level of consciousness.. Comparison: 10/13/2018. Findings: Cardiomediastinal silhouette and pulmonary vessels within normal limits. There is no focal infiltrate or lobar consolidation. No pneumothorax or pleural effusion. No nodule. Upper abdomen is unremarkable. No acute bony abnormality. IMPRESSION: 1. No acute cardiopulmonary process. Report Dictated By: Matt Kim at 12/29/2018 8:04 PM ED Course/Re-evaluation Clinical Indication for ER IV: Hydration, IV Access ED Course Labs show mild dehydration but otherwise are negative. No sign of urinary infection. His chest x-ray and head CT are negative. This appears likely to be a combination of medication or the marijuana use or possibly something in the marijuana as well as the dehydration. I called and discussed the case with Dr. Vila and we will go ahead and admit for altered mental status. Decision to Disposition Date: Dec 29, 2018 Decision to Disposition Time: 22:08 Depart Departure Latest Vital Signs Vital Signs Date Time Temp Pulse Resp B/P (MAP) Pulse Ox O2 Delivery O2 Flow Rate FiO2 12/29/18 22:00 61 16 135/96 (109) 90 Impression: Primary Impression: Altered mental status, unspecified Condition: Condition Unchanged Disposition: Admitted from ER Referrals: PAOLA MORTON (PCP) Problem Qualifiers Primary Impression: Altered mental status, unspecified Altered mental status type: unspecified Qualified Codes: R41.82 - Altered mental status, unspecified SHIRLEY HOLLIDAY MD Dec 29, 2018 19:03
[2018-12-29 19:36] LABS: PLATELET COUNT, AUTOMATED 214 K/uL (150-450)
--- NOTE | 2018-12-29 20:10 | RADIOLOGY IMAGING REPORT ---
FACILITY: [facility] PATIENT NAME: Eligio Menard : 1955 MR: [id number] V: [id number] EXAM DATE: ORDERING PHYSICIAN: SHIRLEY HOLLIDAY TECHNOLOGIST: Location: [facility] [place] Patient: Eligio Menard : 1955 Visit/Account:[id number] Date of Sevice: 12/29/2018 CHEST SINGLE AP Indication: Altered level of consciousness.. Comparison: 10/13/2018. Findings: Cardiomediastinal silhouette and pulmonary vessels within normal limits. There is no focal infiltrate or lobar consolidation. No pneumothorax or pleural effusion. No nodule. Upper abdomen is unremarkable. No acute bony abnormality. IMPRESSION: 1. No acute cardiopulmonary process. Report Dictated By: Matt Kim at 12/29/2018 8:04 PM Report E-Signed By: Matt Kim at 12/29/2018 8:06 PM WSN:[id number]
--- NOTE | 2018-12-29 20:14 | RADIOLOGY IMAGING REPORT ---
FACILITY: [facility] - [place] PATIENT NAME: Eligio Menard : 1955 MR: [id number] V: [id number] EXAM DATE: ORDERING PHYSICIAN: SHIRLEY HOLLIDAY TECHNOLOGIST: Location: [facility] Patient: Eligio Menard : 1955 Visit/Account:[id number] Date of Sevice: 12/29/2018 CT Head without contrast Indication: Altered level of consciousness. Comparison: 10/13/2018. Technique: Axial CT images were obtained through the brain from the skull base to the vertex without administration of IV contrast. Reformatted coronal and sagittal images were also obtained. One of the following dose optimization techniques was utilized in the performance of this exam: autom ated exposure control; adjustment of the mA and/or kV according to the patient's size; or use of an i terative reconstruction technique. Specific details can be referenced in the facility's radiology CT exam operational policy. Findings: No evidence of mass, mass effect, or midline shift. No acute intracranial hemorrhage or acute territorial infarction. No extra-axial fluid collection or hydrocephalus. Cerebral and cerebellar atrophy is again present. M ild periventricular white matter ischemic changes consistent small vessel disease. Lozano/white matter differentiation appears normal. Bony structures show no fractures or lesions. Sinuses and mastoids visualized are clear. The visualized paranasal sinuses and mastoid air cells are clear. IMPRESSION: 1. No acute intracranial abnormality. Report Dictated By: Matt Kim at 12/29/2018 8:07 PM Report E-Signed By: Matt Kim at 12/29/2018 8:11 PM WSN:[id number]
[2018-12-29] MEDS ORDERED: clonazePAM 0.5 MG TAB PO ONE (21:15)
[2018-12-29] MEDS ORDERED: ACETAMINOPHEN 500 MG TAB PO ONE (22:25)
[2018-12-29 23:41] VITALS: BP 128/92
[2018-12-29] MEDS ORDERED: INFLUENZA VIRUS VAC 0.5ML SYR IM ONLY ONE (23:45)
--- NOTE | 2018-12-29 23:53 | History & Physical ---
History of Present Illness Chief Complaint Altered mental status History of Present Illness This patient presented to the emergency room with reports of increased confusion since last night. His reported that he took an extra dose of clonazepam secondary to restless legs, but reported no other factors out of the ordinary. He reports that his symptoms have improved since arriving in the emergency room. History Problems: (1) Lndmg-eeose-agickoazmm atrophy Status: Chronic Home Meds Reported Medications [Cardio Plus] No Conflict Check, 6 TAB DAILY 12/02/18 [Arginex] No Conflict Check, 3 TAB 12/02/18 Alpha Lipoic Acid (ALPHA LIPOIC ACID) 200 Mg Capsule, 200 MG PO DAILY, CAPSULE 12/02/18 [L-Thianine] No Conflict Check, 100 MG 12/02/18 Ubiquinol (UBIQUINOL) 100 Mg Capsule, 300 MG PO BID, CAPSULE 12/02/18 [Cellorgane] No Conflict Check, 1 12/02/18 Cider Vinegar (APPLE CIDER VINEGAR) 600 Mg Capsule, 1800 MG PO TID, CAPSULE 12/02/18 [Magnesium Chew] No Conflict Check, 350 MG PO 12/02/18 Ropinirole Hcl (ROPINIROLE HCL) 4 Mg Tab.er.24h, 4 MG PO QDAY 06/03/18 Bupropion Hcl (BUPROPION XL) 150 Mg Tab.er.24h, 150 MG PO QDAY, #10 TAB 06/03/18 Metoprolol Succinate (METOPROLOL SUCCINATE) 50 Mg Tab.er.24h, 1 TAB PO QDAY, TAB 06/03/18 Baclofen (Lioresal) 20 Mg Tablet, 20 MG PO HS 03/04/13 [place] Fruit (S[place]) 450 Mg Capsule, 450 MG PO DAILY, 0 Refills 07/17/10 Aspirin (Aspirin) 81 Mg Tablet.dr, 325 MG PO DAILY, 0 Refills 07/17/10 [Eye Support Suppl] No Conflict Check, 0 Refills 07/17/10 Multivitamins W-Minerals (Multivitamin) 1 Cap Capsule, 1 CAP PO DAILY, 0 Refills 07/17/10 Clonazepam (Klonopin) 1 Mg Tab, 1 MG PO QHS, 0 Refills 07/17/10 Discontinued Scripts Sulfamethoxazole/Trimet 800-160 Mg Tab (BACTRIM DS TABLET) 1 Each Tablet, 1 TAB PO Q12H, #14 TAB Prov:CHAD TAVERAS WINE PASTEURIZER 12/02/18 Allergies: Coded Allergies: No Known Drug Allergies (Verified , 12/29/18) Patient History: Neurological disease FATHER BROTHER OR SISTER BROTHER OR SISTER Hx Smoking: No Smoking Status: Never Smoker, Unknown if Ever Smoked Caffeine Intake: Coffee Caffeine/Cups Per Day: 1 CUP PER DAY Hx Alcohol Use: Yes (1 wine daily) Hx Substance Use Disorder: No Social Drug Use: Never Review of Systems All Systems Reviewed/Normal: Yes, Except as Noted Neurological: Confusion Exam Vital Signs Vital Signs Date Time Temp Pulse Resp B/P (MAP) Pulse Ox O2 Delivery O2 Flow Rate FiO2 12/29/18 23:41 18 128/92 (104) Nasal Cannula 0.5 12/29/18 21:46 61 94 Neuro: Other (Slowed speech, lid lag.) Eyes: PERRLA Cardiovascular: Regular Rate and Rhythm Respiratory: Clear to Auscultation GI: Abd Soft and Non-Tender Extremities: No Edema Integumentary: No Cyanosis Medical Decision Making Data Points Result Diagram: 12/29/18190812/29/181908 Assessment and Plan Problems: (1) Altered mental status, unspecified Status: Acute Assessment & Plan: He presented with increased confusion since last evening. A CT scan of the head was unremarkable and his lab work did not show a clear etiology. He did take an extra clonazepam, which may have contributed. He reports that he is now at his baseline. Physical and occupational therapy have been ordered. (2) Nhmus-xahha-gyzldgxnge atrophy Status: Chronic Copies to: PAOLA MORTON ; Venous Thromboembolism Antithrombotics Is Pt On Any Antithrombotics?: No Exam Sepsis Risk: No Definite Risk Problem Qualifiers (1) Altered mental status, unspecified: Altered mental status type: unspecified Qualified Codes: R41.82 - Altered mental status, unspecified MORE ZHANG DO Dec 29, 2018 23:53
[2018-12-30 02:50] VITALS: BP 146/90
[2018-12-30] MEDS ORDERED: MORPHINE 2 MG/ML SYR IVP PRN (06:20)
[2018-12-30] MEDS: rOPINIRole HCL 4 MG TAB PO SCH (07:18)
[2018-12-30 08:00] VITALS: BP 143/94
[2018-12-30] MEDS ORDERED: LORazepam 2 MG/ML VIAL IVP PRN ×3 (08:25→16:55)
[2018-12-30] MEDS ORDERED: METOPROLOL SUCC XL 50 MG TABCR 50 MG TAB.ER.24H PO SCH ×2 (09:00→10:00)
[2018-12-30] MEDS: ASPIRIN 325 MG TAB PO SCH (10:05)
[2018-12-30] MEDS: buPROPion XL 150 MG TABCR PO SCH (10:05)
[2018-12-30] MEDS: DRONABINOL 2.5 MG CAP PO SCH ×2 (10:05→20:36)
[2018-12-30] MEDS: LR(*) 1000 ML BAG 1,000 ML IV PRN (11:37)
--- NOTE | 2018-12-30 12:25 | NUR ---
Physical Therapy Impression PT verbal eval complete. Per nursing, Pt not appropriate to attempt functional mobility due to severe leg pain and also decreased cognition at this time. PT to continue to follow. Physical Therapy Goals 1. Mod A bed mobility. 2. Mod A stand pivot transfer. Patient's Goals
--- NOTE | 2018-12-30 12:26 | Hospitalist Progress Note ---
Subjective Progress Notes Subjective He continues to have the RLS pain. He has received morphine without much improvement. His reports that he is still confused from baseline. He reports no back pain or focal leg pain. The leg pain is throughout both legs, like his RLS pain. Physical Exam Vital Signs Date Time Temp Pulse Resp B/P (MAP) Pulse Ox O2 Delivery O2 Flow Rate FiO2 12/30/18 11:36 92 12/30/18 08:00 98.1 69 143/94 (110) Room Air 12/29/18 23:41 18 0.5 Intake and Output 12/30/18 07:00 Intake Total 400 ml Output Total 350 ml Balance 50 ml Intake Oral 400 ml Output Urine Total 350 ml # Voids 2 General Appearance: Awake, Other (Eyes closed.) Neuro: Other (Answers some questions, but has difficulty giving a coherent answer to other questions.) Musculoskeletal: Other (No pain with palpation of the legs. 3-4 beat clonus bilaterally) Extremities: No Edema Result Diagram: 12/29/18190812/29/181908 Assessment and Plan Problems: (1) Altered mental status, unspecified Status: Acute Assessment & Plan: He presented with increased confusion the day of admission. He took and extra half dose of clonazepam the night before admission. He has increased his marijuana vape use from tid to q2 hours because of the RLS pain. Also, he might have started taking Marinol for the RLS and appetite stimulation. Likely, the increase in centrally acting medications for his RLS have caused the AMS. UA, CXR, and CBC are wnl. He is afebrile. Trying to minimize sedating medications for RLS, but still give relief. See below. (2) RLS (restless legs syndrome) Status: Chronic Assessment & Plan: Over the last 2 months, he has had worsening pain. 4 days prior to admission, the pain increased significantly and he hasn't been able to get adequate relief. Will continue Requip at 4mg, but reduce the clonazepam by half to 0.5mg. Will continue Marinol, but at half dose at 2.5mg. Will use prn Ativan IV for breakthrough discomfort. Iron and TIBC wnl, but if the fasting ferritin is <75 then will consider replacement. When mental status improves, will consider adding gabapentin. (3) Jxplo-hoyis-aftinxzmjo atrophy Status: Chronic Assessment & Plan: Continue baclofen and Wellbutrin. Exam Sepsis Risk: No Definite Risk Problem Qualifiers (1) Altered mental status, unspecified: Altered mental status type: unspecified Qualified Codes: R41.82 - Altered mental status, unspecified EARL MAY MD Dec 30, 2018 12:26
[2018-12-30 12:40] VITALS: BP 140/87
--- NOTE | 2018-12-30 13:01 | NUR ---
Occupational Therapy Impression Please refer to PT notes. Pt. not medically appropriate at this time for evaluation. Occupational Therapy Goals Patient's Goal
[2018-12-30 16:34] VITALS: BP 121/91
[2018-12-30 19:30] VITALS: BP 143/83
[2018-12-30] MEDS ORDERED: rOPINIRole HCL 4 MG TAB PO SCH (21:00)
[2018-12-30] MEDS ORDERED: clonazePAM 1 MG TAB PO SCH (21:00)
[2018-12-30] MEDS ORDERED: GABAPENTIN 100 MG CAP PO SCH (21:00)
[2018-12-30] MEDS ORDERED: clonazePAM 0.5 MG TAB PO SCH (21:00)
[2018-12-30] MEDS ORDERED: BACLOFEN 10 MG TAB PO SCH (21:00)
[2018-12-30 23:37] VITALS: BP 94/68
[2018-12-31 04:45] VITALS: BP 117/87
[2018-12-31] MEDS: LR(*) 1000 ML BAG 1,000 ML IV PRN (04:45)
[2018-12-31 07:00] LABS: PLATELET COUNT, AUTOMATED 219 K/uL (150-450)
[2018-12-31 07:56] VITALS: BP 116/81
[2018-12-31] MEDS: METOPROLOL SUCC XL 50 MG TABCR 50 MG TAB.ER.24H PO SCH ×2 (09:00→09:35)
[2018-12-31] MEDS: ASPIRIN 325 MG TAB PO SCH (09:34)
[2018-12-31] MEDS: buPROPion XL 150 MG TABCR PO SCH (09:34)
[2018-12-31] MEDS: rOPINIRole HCL 4 MG TAB PO SCH (09:34)
[2018-12-31] MEDS: DRONABINOL 2.5 MG CAP PO SCH (09:35)
[2018-12-31 10:05] VITALS: BP 102/70
--- NOTE | 2018-12-31 11:54 | NUR ---
Physical Therapy Impression PT present for OT's eval and PT/OT co-treat completed for pt safety, with time split for billing purposes. Pt notes that he feels he is at his baseline and would be successful with home transfers, as he has bars and furniture such that it enables him to transfer more easily. Pt completed transfer from recliner to W/C, W/C to toilet and was able to maintain standing balance for pericare, with use of grabs bars indep. Pt then transferred W/C to bed with Min/Mod assist and did require increased assistance for repositioning in bed. From a mobility standpoint, PT recommends [facility] services to optimize current home environment and provide any further recommendations for CG's to ensure pt's safety. Rec d/c home when medically appropriate, as pt is likely at his prior level of function with significant help available in the home setting. Physical Therapy Goals 1. Mod A bed mobility. 2. Mod A stand pivot transfer. Patient's Goals
[2018-12-31 13:28] VITALS: BP 105/75
[2018-12-31] MEDS ORDERED: CLON-388 PO (13:40)
[2018-12-31] MEDS ORDERED: DRON5CAP15 PO (13:40)
[2018-12-31] MEDS ORDERED: THEA25PO MC (13:40)
[2018-12-31] MEDS ORDERED: ASPI-757 PO (13:40)
[2018-12-31] MEDS ORDERED: GABA-547 PO (13:42)
--- NOTE | 2018-12-31 13:53 | Hospitalist Depart ---
Discharge Summary Reason for Hosp/Final Diag: (1) Altered mental status, unspecified Status: Acute Hospital Course & Plan: He presented with increased confusion the day of admission. He took and extra half dose of clonazepam the night before admission. He has increased his marijuana vapor use from TID to q2 hours bec ause of the Restless Legs Syndrome symptoms. Also, he also started taking Marinol for the RLS and appetite stimulation. Likely, the increase in centrally acting medications for his RLS have caused the acute mental status changes. UA, CXR, and CBC are unremarkable. He was afebrile. We modified his regimen and symptoms improved/resolved. He was essentially at his baseline. (2) RLS (restless legs syndrome) Status: Chronic Hospital Course & Plan: Over the last 2 months, he has had worsening pain. Approximately 4 days prior to admission, the pain increased significantly and he hasn't been able to get adequate relief. We will continue Requip, clonazepam, and Marinol. We added low dose gabapentin 100mg qHS. He will stop any additional marijuana use. Iron, TIBC, and ferritin are not consistent with iron deficiency. He was doing very well on the modified regimen. He will follow up closely with his primary care provider. (3) Gltat-jjvyo-juksyaplci atrophy Status: Chronic Hospital Course & Plan: Continue baclofen and Wellbutrin. Departure Weight (Pounds): 155 Weight (Ounces): 4.0 Result Diagram: 12/31/1861312/31/18613 Item Value Date Time Sodium Level 144 mmol/L 12/29/181908 Potassium Level 3.9 mmol/L 12/29/181908 Chloride Level 114 mmol/L H 12/29/181908 Carbon Dioxide Level 28 mmol/L 12/29/181908 Blood Urea Nitrogen 26 mg/dl H 12/29/181908 Creatinine 1.50 mg/dl H 12/29/181908 Glomerular Filtration Rate Calc 47.1 12/29/181908 Random Glucose 131 mg/dl H 12/29/181908 Calcium Level 9.8 mg/dl 12/29/181908 Magnesium Level 2.5 mg/dl H 12/29/181908 Total Bilirubin 0.2 mg/dl 12/29/181908 Aspartate Amino Transf (AST/SGOT) 82 U/L H 12/29/181908 Alanine Aminotransferase (ALT/SGPT) 58 U/L H 12/29/181908 Alkaline Phosphatase 61 U/L 12/29/181908 Total Protein 6.7 g/dl 12/29/181908 Albumin 3.8 g/dl 12/29/181908 Percent Iron Saturation 22.5 % 12/30/18 0000 Total Iron Binding Capacity 293 ug/dl 12/30/18 0000 Iron Level 66 ug/dl 12/30/18 0000 Ferritin 546 ng/ml H 12/31/18 0614 White Blood Count 4.7 k/uL 12/29/181908 Hemoglobin 15.3 g/dL 12/29/181908 Hematocrit 45.9 % 12/29/181908 Platelet Count 214 K/uL 12/29/181908 Urine Color Yellow 12/29/182017 Urine Clarity Slightly-cloudy 12/29/182017 Urine pH 7.0 pH 12/29/182017 Urine Specific [place] 1.013 12/29/182017 Urine Protein Negative mg/dL 12/29/182017 Urine Glucose (UA) Negative mg/dL 12/29/182017 Urine Ketones Negative mg/dL 12/29/182017 Urine Blood Negative 12/29/182017 Urine Nitrite Negative 12/29/182017 Urine Bilirubin Negative 12/29/182017 Urine Urobilinogen Negative mg/dL 12/29/182017 Urine Leukocyte Esterase Negative 12/29/182017 Urine RBC None /HPF 12/29/182017 Urine WBC <1 /HPF 12/29/182017 Urine Squamous Epithelial Cells None /LPF 12/29/182017 Urine Amorphous Crystals Few /HPF 12/29/182017 Urine Bacteria Negative /HPF 12/29/182017 Urine Mucus None /HPF 12/29/182017 Urine Cannabinoids Screen Positive 12/29/18 2018 Urine Cocaine Screen Negative 12/29/182017 Urine Benzodiazepines Screen Negative 12/29/182017 Urine Amphetamines Screen Negative 12/29/182017 Urine Phencyclidine Screen Negative 12/29/182017 Ur Tricyclic Antidepressants Screen Negative 12/29/182017 Urine Barbiturates Screen Negative 12/29/182017 Urine Opiates Screen Negative 12/29/182017 Imaging PATIENT NAME: Eligio Menard : 1955 MR: [id number] V: [id number] EXAM DATE: [id number] ORDERING PHYSICIAN: SHIRLEY HOLLIDAY TECHNOLOGIST: Location: [facility] [place] Patient: Eligio Menard : 1955 Visit/Account:[id number] Date of Sevice: 12/29/2018 CT Head without contrast Indication: Altered level of consciousness. Comparison: 10/13/2018. Technique: Axial CT images were obtained through the brain from the skull base to the vertex without administration of IV contrast. Reformatted coronal and sa gittal images were also obtained. One of the following dose optimization techniques was utilized in the performance of this exam: automated exposure control; adjustment of the mA and/or kV according to the patient's size; or use of an iterative reconstruction technique. Specific details can be referenced in the facility's radiology CT exam operational policy. Findings: No evidence of mass, mass effect, or midline shift. No acute intracranial hemorrhage or acute territorial infarction. No extra-axial fluid collection or hydrocephalus. Cerebral and cerebellar atrophy is again present. Mild periventricular white matter ischemic changes consistent small vessel disease. Lozano/white matter differentiation appears normal. Bony structures show no fractures or lesions. Sinuses and mastoids visualized are clear. The visualized paranasal sinuses and mastoid air cells are clear. IMPRESSION: 1. No acute intracranial abnormality. Report Dictated By: Matt Kim at 12/29/2018 8:07 PM Report E-Signed By: Matt Kim at 12/29/2018 8:11 PM WSN:[id number] PATIENT NAME: Eligio Menard : 1955 MR: [id number] V: [id number] EXAM DATE: [id number] ORDERING PHYSICIAN: SHIRLEY HOLLIDAY TECHNOLOGIST: Location: [facility] [place] Patient: Eligio Menard : 1955 Visit/Account:[id number] Date of Sevice: 12/29/2018 CHEST SINGLE AP Indication: Altered level of consciousness.. Comparison: 10/13/2018. Findings: Cardiomediastinal silhouette and pulmonary vessels within normal limits. There is no focal infiltrate or lobar consolidation. No pneumothorax or pleural effusion. No nodule. Upper abdomen is unremarkable. No acute bony abnormality. IMPRESSION: 1. No acute cardiopulmonary process. Report Dictated By: Matt Kim at 12/29/2018 8:04 PM Report E-Signed By: Matt Kim at 12/29/2018 8:06 PM WSN:[id number] Condition: Improved Discharge: Home Time Spent: > 30 min Discharge Instructions Home Meds Active Scripts Gabapentin (GABAPENTIN) 100 Mg Capsule, 100 MG PO HS for 30 Days, #30 CAPSULE 1 Refill Prov:RADHA PAGAN MD 12/31/18 Reported Medications Dronabinol (DRONABINOL) 5 Mg Capsule, 5 MG PO BID, CAPSULE 12/31/18 Theanine (L-THEANINE) 25 Gm Powder, 100 MG MC 12/31/18 Aspirin (ASPIRIN) 325 Mg Tablet, 325 MG PO QDAY, TAB 12/31/18 Clonazepam (CLONAZEPAM) 0.5 Mg Tab.rapdis, 0.5 MG PO TID PRN for LEG RESTLESSNESS, #90 TAB 12/31/18 [Cardio Plus] No Conflict Check, 6 TAB DAILY 12/02/18 [Arginex] No Conflict Check, 3 TAB 12/02/18 Alpha Lipoic Acid (ALPHA LIPOIC ACID) 200 Mg Capsule, 200 MG PO QAM, CAPSULE 12/02/18 Ubiquinol (UBIQUINOL) 100 Mg Capsule, 300 MG PO BID, CAPSULE 12/02/18 [Cellorgane] No Conflict Check, 1 12/02/18 Cider Vinegar (APPLE CIDER VINEGAR) 600 Mg Capsule, 1800 MG PO TID, CAPSULE 12/02/18 [Magnesium Chew] No Conflict Check, 350 MG PO 12/02/18 Ropinirole Hcl (ROPINIROLE HCL) 4 Mg Tab.er.24h, 4 MG PO QDAY 06/03/18 Bupropion Hcl (BUPROPION XL) 150 Mg Tab.er.24h, 150 MG PO QDAY, #10 TAB 06/03/18 Metoprolol Succinate (METOPROLOL SUCCINATE) 50 Mg Tab.er.24h, 1 TAB PO QDAY, TAB 06/03/18 Baclofen (Lioresal) 20 Mg Tablet, 20 MG PO TID 03/04/13 Saw [place] Fruit (Saw [place]) 450 Mg Capsule, 450 MG PO DAILY, 0 Refills 07/17/10 [Eye Support Suppl] No Conflict Check, 0 Refills 07/17/10 Discontinued Reported Medications [L-Thianine] No Conflict Check, 100 MG 12/02/18 Aspirin (Aspirin) 81 Mg Tablet.dr, 325 MG PO DAILY, 0 Refills 07/17/10 Clonazepam (Klonopin) 1 Mg Tab, 1 MG PO QHS, 0 Refills 07/17/10 Multivitamins W-Minerals (Multivitamin) 1 Cap Capsule, 1 CAP PO DAILY, 0 Refills 07/17/10 Discontinued Scripts Sulfamethoxazole/Trimet 800-160 Mg Tab (BACTRIM DS TABLET) 1 Each Tablet, 1 TAB PO Q12H, #14 TAB Prov:CHAD TAVERAS 12/02/18 Diet: Regular Activity: As Tolerated (Wheelchair for mobility) Special Instructions: Follow up with Virginia ROSE in enxt 5-7 days or sooner if any problems. Copies to: VIRGINIA MOTRON ; Venous Thromboembolism Antithrombotics Is Pt On Any Antithrombotics?: No Problem Qualifiers (1) Altered mental status, unspecified: Altered mental status type: unspecified Qualified Codes: R41.82 - Altered mental status, unspecified RADHA PAGAN MD Dec 31, 2018 13:53
[2018-12-31 15:10] VITALS: BP 123/75
== END 2018-12-31 13:39 | disposition home health service (06) ==
LOC: ER 19:06 → MED 22:28 → INTOOBSV 22:28
PROVIDERS: ADMIT Family Medicine; ATTEND Family Medicine
DX: R41.82 Altered mental status, unspecified (principal); R53.1 Weakness; E86.0 Dehydration; G25.81 Restless legs syndrome; G23.8 Other specified degenerative diseases of basal ganglia
CPT/HCPCS: 36415; 70450; 71045; 80305; 81001; 82728; 83540; 83550; 83735; 85025; 96360; 96361; 97163; 97166; 97530; 97535; 99284; A9270; G0378; J2060; J2270; J7120; Q0167; 82040; 82247; 82310; 82374; 82435; 82565; 82947; 84075; 84132; 84155; 84295; 84450; 84460; 84520

== ENCOUNTER 2019-01-02 21:45 | Emergency (ER) | payer MEDICARE, OTHER ==
[~2019-01-02 21:45] MED LIST changes: +ASPI-757 PO; +CLON-388 PO; +DRON5CAP15 PO; +GABA-547 PO; +THEA25PO MC
--- NOTE | 2019-01-02 21:59 | ER Report ---
History and Physical Time Seen By MD: 21:57 HPI/ROS CHIEF COMPLAINT: Bilateral neuropathy, leg pain HISTORY OF PRESENT ILLNESS: 63-year-old male presents via wheelchair with chronic neurologic disorder who is wheelchair-bound. Patient was recently admitted for 2 days for mental status changes related to excessive marijuana use along with Marinol. Patient had an increase in his bilateral lower extremity pain approximately one week ago. At that time he began using marijuana taping device to excess. He presented with altered mental status. He was admitted for 2 days and observed. He was initiated on low-dose gabapentin. Patient returns to the ER [facility] complaining of severe bilateral lower extremity pain which is not allowing him to sleep. Patient received morphine while an inpatient and which did not improve his neurogenic pain. Patient is very somnolent from all of his medications which are overly sedating as well as his neurologic disorder. REVIEW OF SYSTEMS: Respiratory: No cough, no dyspnea. Cardiovascular: No chest pain, no palpitations. Gastrointestinal: No vomiting, no abdominal pain. Musculoskeletal: No back pain. Allergies: Coded Allergies: No Known Drug Allergies (Verified , 01/02/19) Home Meds Active Scripts Gabapentin (GABAPENTIN) 100 Mg Capsule, 100 MG PO HS for 30 Days, #30 CAPSULE 1 Refill Prov:RADHA PAGAN MD 12/31/18 Reported Medications Dronabinol (DRONABINOL) 5 Mg Capsule, 5 MG PO BID, CAPSULE 12/31/18 Theanine (L-THEANINE) 25 Gm Powder, 100 MG MC 12/31/18 Aspirin (ASPIRIN) 325 Mg Tablet, 325 MG PO QDAY, TAB 12/31/18 Clonazepam (CLONAZEPAM) 0.5 Mg Tab.rapdis, 0.5 MG PO TID PRN for LEG RESTLESSNESS, #90 TAB 12/31/18 [Cardio Plus] No Conflict Check, 6 TAB DAILY 12/02/18 [Arginex] No Conflict Check, 3 TAB 12/02/18 Alpha Lipoic Acid (ALPHA LIPOIC ACID) 200 Mg Capsule, 200 MG PO QAM, CAPSULE 12/02/18 Ubiquinol (UBIQUINOL) 100 Mg Capsule, 300 MG PO BID, CAPSULE 12/02/18 [Cellorgane] No Conflict Check, 1 12/02/18 Cider Vinegar (APPLE CIDER VINEGAR) 600 Mg Capsule, 1800 MG PO TID, CAPSULE 12/02/18 [Magnesium Chew] No Conflict Check, 350 MG PO 12/02/18 Ropinirole Hcl (ROPINIROLE HCL) 4 Mg Tab.er.24h, 4 MG PO QDAY 06/03/18 Bupropion Hcl (BUPROPION XL) 150 Mg Tab.er.24h, 150 MG PO QDAY, #10 TAB 06/03/18 Metoprolol Succinate (METOPROLOL SUCCINATE) 50 Mg Tab.er.24h, 1 TAB PO QDAY, TAB 06/03/18 Baclofen (Lioresal) 20 Mg Tablet, 20 MG PO TID 03/04/[address] Fruit (Saw [place]) 450 Mg Capsule, 450 MG PO DAILY, 0 Refills 07/17/10 [Eye Support Suppl] No Conflict Check, 0 Refills 07/17/10 Discontinued Reported Medications [L-Thianine] No Conflict Check, 100 MG 12/02/18 Aspirin (Aspirin) 81 Mg Tablet.dr, 325 MG PO DAILY, 0 Refills 07/17/10 Clonazepam (Klonopin) 1 Mg Tab, 1 MG PO QHS, 0 Refills 07/17/10 Multivitamins W-Minerals (Multivitamin) 1 Cap Capsule, 1 CAP PO DAILY, 0 Refills 07/17/10 Discontinued Scripts Sulfamethoxazole/Trimet 800-160 Mg Tab (BACTRIM DS TABLET) 1 Each Tablet, 1 TAB PO Q12H, #14 TAB Prov:CHAD TAVERAS CARD PLACER 12/02/18 Reviewed Nurses Notes: Yes Old Medical Records Reviewed: Yes Hx Smoking: No Smoking Status: Never Smoker, Unknown if Ever Smoked Hx Substance Use Disorder: No Hx Alcohol Use: Yes (1 wine daily) Constitutional Vital Sign - Last 24 Hours 01/02/19 21:54 Temp 98.4 Pulse 70 Resp 20 B/P (MAP) 112/81 Pulse Ox 92 O2 Delivery Room Air Physical Exam General Appearance: patient is alert, has no immediate need for airway protection and no current signs of toxicity. Vital signs stable, afebrile, pulse ox normal Eyes: Pupils equal and round no injection. Respiratory: Chest is non tender, lungs are clear to auscultation. Cardiac: regular rate and rhythm Gastrointestinal: Abdomen is soft and non tender, no masses, bowel sounds normal. Musculoskeletal: Neck: Neck is supple and non tender. Extremities have full range of motion and are non tender. No edema, no calf tenderness, no hyperesthesia Skin: No rashes or lesions. DIFFERENTIAL DIAGNOSIS: After history and physical exam differential diagnosis was considered for neuropathy, restless leg syndrome, marijuana withdrawal, Medical Decision Making ED Course/Re-evaluation ED Course Patient was admitted to an examination room. H&P was done. The differential diagnoses was considered. On clinical examination, patient appears to have increasing neuroleptic pain/neuropathy. His case is very complex. He has underlying neurologic disorder and is wheelchair-bound. He is on numerous medications that are very sedating to begin with. The effects of most of his medications are becoming additive. Patient had an exacerbation of his restless leg neuropathy approximately one week ago. They attempted to treated while he was admitted 2 days ago for altered mental status. They've initiated gabapentin, but the rate of increases quite slow. Patient has an appointment with his primary care Virginia Landrum on Friday for further treatment adjustments. I spoke with the patient and his at length. I am reluctant to increase any of his medications. Very much because he is very somnolent to begin with, I think a rapid increases or go to introduce altered mental status changes. Again, and patient will be a not be able to function and will need to be readmitted. I suggested that he receive an extra dose of clonazepam tonight to help him hopefully sleep and at extra dose of gabapentin. I advised that he start taking the gabapentin 100 mg twice daily until follow-up with his primary care doctor on Friday. I also talked about the benefits of capsaicin cream and lidocaine. His other treatment options. Decision to Disposition Date: Jan 02, 2019 Decision to Disposition Time: 22:18 Depart Departure Latest Vital Signs Vital Signs Date Time Temp Pulse Resp B/P (MAP) Pulse Ox O2 Delivery O2 Flow Rate FiO2 01/02/19 21:54 98.4 70 20 112/81 92 Room Air Impression: Primary Impression: RLS (restless legs syndrome) Additional Impressions: Leg pain, bilateral Owrim-acgsn-pspxtzvnyy atrophy Condition: Improved Disposition: HOME OR SELF-CARE Referrals: VIRGINIA LANDRUM (PCP) Patient Instructions: Restless Legs Syndrome (ED) Additional Instructions: Take an extra dose of clonazepam just tonight Take an extra dose of gabapentin 100 mg tonight, then begin gabapentin 100 mg twice daily Follow-up with your primary care provider on Friday as planned Problem Qualifiers TULIO LEONE DO Jan 02, 2019 21:59
[2019-01-02 22:24] VITALS: BP 114/71
== END 2019-01-02 22:29 | disposition home or self-care (01) ==
LOC: ER 22:07
DX: G25.81 Restless legs syndrome (principal); M79.605 Pain in left leg; M79.604 Pain in right leg; G23.8 Other specified degenerative diseases of basal ganglia
CPT/HCPCS: 99282

== ENCOUNTER 2019-01-10 20:31 | Emergency (ER) | payer MEDICARE, OTHER ==
--- NOTE | 2019-01-10 21:04 | ER Report ---
History and Physical Time Seen By MD: 21:04 Hx. of Stated Complaint: HAS opca, TYPE 7. LOLA HAS LEG PAIN. 08/03. GABAPENTIN WAS INCREASED RECENTLY, PAOLA MORTON IS CONCERNED THIS IS CAUSING HIS CONFUSION. SHE RECOMMENDED HE NOT TAKE IT ANY MORE. HIS LAST DOES WAS THIS MORNING HPI/ROS CHIEF COMPLAINT: leg pain HISTORY OF PRESENT ILLNESS: This is a 63 year old male. He has chronic leg pain and restless leg syndrome. Difficult to control because of the many centrally acting medicines that he is on right now. Had been on a trial of Gabapenting with a lower dose and plan to slowly titrate higher to improve pain without sedation or confusion, but this is not helping pain and already causing problems. They were advised to stop this today and last dose was this morning. He is having worsening pain, and historically this usually worsens at night time. He is not having any confusion. Used the usual night doses of medications without relief. The patient and his are both frustrated at this disease process and lack of ability to control the pain without other side effect. Allergies: Coded Allergies: No Known Drug Allergies (Verified , 01/10/19) Home Meds Active Scripts Pregabalin (LYRICA) 75 Mg Capsule, 75 MG PO BID, #14 CAPSULE 0 Refills Prov:SHIRLEY HOLLIDAY MD 01/10/19 Oxycodone Hcl/Acetaminophen (PERCOCET 5-325 MG TABLET) 1 Each Tablet, 1 EACH PO Q4H PRN for PAIN, #12 TAB 0 Refills Prov:SHIRLEY HOLLIDAY MD 01/10/19 Gabapentin (GABAPENTIN) 100 Mg Capsule, 100 MG PO HS for 30 Days, #30 CAPSULE 1 Refill Prov:RADHA PAGAN MD 12/31/18 Reported Medications Dronabinol (DRONABINOL) 5 Mg Capsule, 5 MG PO BID, CAPSULE 12/31/18 Theanine (L-THEANINE) 25 Gm Powder, 100 MG MC 12/31/18 Aspirin (ASPIRIN) 325 Mg Tablet, 325 MG PO QDAY, TAB 12/31/18 Clonazepam (CLONAZEPAM) 0.5 Mg Tab.rapdis, 0.5 MG PO TID PRN for LEG RESTLESSNESS, #90 TAB 12/31/18 [Cardio Plus] No Conflict Check, 6 TAB DAILY 12/02/18 [Arginex] No Conflict Check, 3 TAB 12/02/18 Alpha Lipoic Acid (ALPHA LIPOIC ACID) 200 Mg Capsule, 200 MG PO QAM, CAPSULE 12/02/18 Ubiquinol (UBIQUINOL) 100 Mg Capsule, 300 MG PO BID, CAPSULE 12/02/18 [Cellorgane] No Conflict Check, 1 12/02/18 Cider Vinegar (APPLE CIDER VINEGAR) 600 Mg Capsule, 1800 MG PO TID, CAPSULE 12/02/18 [Magnesium Chew] No Conflict Check, 350 MG PO 12/02/18 Ropinirole Hcl (ROPINIROLE HCL) 4 Mg Tab.er.24h, 4 MG PO QDAY 06/03/18 Bupropion Hcl (BUPROPION XL) 150 Mg Tab.er.24h, 150 MG PO QDAY, #10 TAB 06/03/18 Metoprolol Succinate (METOPROLOL SUCCINATE) 50 Mg Tab.er.24h, 1 TAB PO QDAY, TAB 06/03/18 Baclofen (Lioresal) 20 Mg Tablet, 20 MG PO TID 03/04/13 Saw Richwood Fruit (Saw Richwood) 450 Mg Capsule, 450 MG PO DAILY, 0 Refills 07/17/10 [Eye Support Suppl] No Conflict Check, 0 Refills 07/17/10 Reviewed Nurses Notes: Yes Hx Smoking: No Smoking Status: Never Smoker, Unknown if Ever Smoked Hx Substance Use Disorder: No Hx Alcohol Use: Yes (1 wine daily) Constitutional Vital Sign - Last 24 Hours 01/10/19 01/10/19 01/10/19 01/10/19 20:31 20:38 20:46 20:49 Temp 98.5 Pulse ??? 51 ??? Resp 20 B/P (MAP) 142/94 147/85 (105) Pulse Ox 97 O2 Delivery Room Air 01/10/19 01/10/19 01/10/19 01/10/19 21:00 21:01 21:16 21:30 Pulse 72 67 B/P (MAP) 134/79 (97) 133/88 (103) Pulse Ox 93 92 01/10/19 01/10/19 01/10/19 01/10/19 21:31 21:46 21:51 22:00 Pulse 74 ? B/P (MAP) 130/85 (100) Pulse Ox 92 2/01/10/19 01/10/19 01/10/19 22:06 22:21 22:30 22:36 Pulse ? B/P (MAP) 127/80 (96) 01/10/19 01/10/19 01/10/19 01/10/19 22:51 23:00 23:06 23:21 Pulse ? B/P (MAP) 104/82 (89) 01/10/19 01/10/19 23:30 23:36 Pulse ??? B/P (MAP) ???/??? (9686) Physical Exam General: Alert, distress from pain. Neuro: Chronic neurological changes, but is alert and oriented x4. Medical Decision Making ED Course/Re-evaluation ED Course Recommended against a big workup after further conversation. We are getting to the point where we will have to consider comfort care. Discussed that all medications available will have the potential to cause sedation or confusion and will need to weigh the problem of these side effects with the desire for comfort and pain control. If choosing further medications, the risk of additional illness such as aspiration, or even suppression of breathing and other vital functions is possible. They expressed understanding of this, but his suffering is such that they feel this would be an acceptable risk. We gave him two separ ate doses of Percocet 5/325, with some improvement in pain level and mild sedation, but no confusion. Started Lyrica 75mg, instructed to take twice a day for the next week. Follow-up with PCP for dose adjustment after this. Small prescription for Percocet to use as needed, but with the instructions that sedation and confusion could result. They will discuss comfort care measures; f urther discussion with their primary care provider depending on how the Lyrica will work for them. Decision to Disposition Date: Jan 10, 2019 Decision to Disposition Time: 22:31 Depart Departure Latest Vital Signs Vital Signs Date Time Temp Pulse Resp B/P (MAP) Pulse Ox O2 Delivery O2 Flow Rate FiO2 01/10/19 23:36 ??? 01/10/19 23:30 ???/??? (1575) 01/10/19 21:31 92 01/10/19 20:38 98.5 20 Room Air Impression: Primary Impression: Neuropathic pain of both legs Condition: Improved Disposition: HOME OR SELF-CARE Referrals: PAOLA MORTON (PCP) New Scripts Pregabalin (LYRICA) 75 Mg Capsule 75 MG PO BID, #14 CAPSULE 0 Refills Prov: SHIRLEY HOLLIDAY MD 01/10/19 Oxycodone Hcl/Acetaminophen (PERCOCET 5-325 MG TABLET) 1 Each Tablet 1 EACH PO Q4H PRN for PAIN, #12 TAB 0 Refills Prov: SHIRLEY HOLLIDAY MD 01/10/19 Patient Instructions: Peripheral Neuropathy (ED) Additional Instructions: Start Lyrica 75mg twice a day. Percocet 5/325, one every 4 hours as needed for severe pain. Caution regarding the many medications that can cause sedation and confusion. Consideration for comfort care/pain control. SHIRLEY HOLLIDAY MD Jan 10, 2019 21:04
[2019-01-10] MEDS ORDERED: PREGABALIN 25 MG CAP PO ONE (21:45)
[2019-01-10] MEDS ORDERED: OXYC-865 PO (22:32)
[2019-01-10] MEDS ORDERED: PREG75CA60 PO (23:23)
== END 2019-01-10 23:20 | disposition home or self-care (01) ==
LOC: ER 20:43
DX: M79.605 Pain in left leg (principal); M79.604 Pain in right leg
CPT/HCPCS: 99283; A9270